=== PATIENT | female | born 1960 | race Caucasian/White ===

== ENCOUNTER 2022-04-25 07:15 | Day surgery (SDC) | payer BC ==
[~2022-04-25] VITALS: Ht 162.6 cm; Wt 72.6 kg
[~2022-04-25 07:15] MED LIST: ASPI-226 PO; B-12100010 PO; BUPIVACAINE HCL 0.5% 30ML VIAL As Ordered ONE; HYDR-3490 PO; JARD1TAB PO; LIDOCAINE 2% MDV 20ML VIAL As Ordered ONE; METF10004 PO; NEOSPORIN GU IRRIG 20 ML VIAL As Ordered ONE; PANT20TA6 PO; ceFAZolin SOD 2 GM in IV 1 EA IV ONE; dexameTHASONE 4 MG/ML 1ML VIAL (J1100 PER 1MG) As Ordered ONE
[2022-04-25] MEDS ORDERED: LR 1,000 ML IV SCH ×2 (07:25→08:45)
[2022-04-25] MEDS ORDERED: oxyCODONE 5MG TAB PO PRN (08:45)
[2022-04-25] MEDS ORDERED: ONDANSETRON 4MG 2ML VIAL IV PRN (08:45)
[2022-04-25] MEDS ORDERED: GENTAMICIN SULF 80MG/2ML VIAL As Ordered ONE (09:11)
[2022-04-25] MEDS ORDERED: ACETAMINOPHEN 1000MG 100ML IV BTL (OFIRMEV) (J0131 PER 10MG) As Ordered ONE (09:33)
[2022-04-25] MEDS ORDERED: fentaNYL 100 MCG/2 ML INJECTION As Ordered ONE (09:33)
[2022-04-25] MEDS ORDERED: MIDAZOLAM INJ 2MG/2ML VIAL (J2250 PER 1MG) As Ordered ONE (09:33)
[2022-04-25] MEDS ORDERED: propofoL 200 MG/20 ML VIAL As Ordered ONE (09:33)
[2022-04-25] MEDS ORDERED: KETOROLAC 60MG 2ML VIAL As Ordered ONE (09:42)
[2022-04-25 11:13] VITALS: BP 127/76
== END 2022-04-25 11:28 | disposition home or self-care (01) ==
LOC: M SDC 07:15
PROVIDERS: ATTEND Podiatrist
DX: M20.21 Hallux rigidus, right foot (principal); G57.61 Lesion of plantar nerve, right lower limb; E11.40 Type 2 diabetes mellitus with diabetic neuropathy, unspecified; I10 Essential (primary) hypertension; K21.9 Gastro-esophageal reflux disease without esophagitis; Z79.899 Other long term (current) drug therapy; Z79.82 Long term (current) use of aspirin; Z79.84 Long term (current) use of oral hypoglycemic drugs
CPT/HCPCS: 28080; 28289; 73630; 88304; 97116; 97161; J0131; J0690; J1580; J1885; J2250; J3010